=== PATIENT | female | born 1940 | race African-American/Black ===

== ENCOUNTER 2018-04-17 00:04 | Inpatient (IN) | payer OTHER ==
[~2018-04-17] VITALS: Ht 160 cm; Wt 79.8 kg
[2018-04-17 00:59] LABS: BASOPHILS % 0.7 % (0.0-2.0); EOSINOPHILS % 2.3 % (0.0-5.0); LYMPHOCYTES % 11.7 % (20.0-50.0); MEAN CORPUSCULAR HEMOGLOBIN 31.5 pg (28.0-32.0); MEAN CORPUSCULAR VOLUME 94.2 fL (81.0-99.0); MEAN PLATELET VOLUME 7.7 fl (7.4-10.4); MONOCYTES % 5.9 % (2.0-8.0); NEUTROPHILS % 79.4 % (40.0-76.0); PLATELET 199 x1000/uL (130-400); RED BLOOD CELL COUNT 1.31 mill/uL (4.2-5.4)
[2018-04-17 01:02] LABS: CHLORIDE 103 mEq/L (98-107)
[2018-04-17 01:10] LABS: INR 1.1; PROTHROMBIN TIME 11.4 sec (9.4-11.6)
[2018-04-17 01:11] LABS: HEMATOCRIT. 12.3 % (36.0-48.0); HEMOGLOBIN. 4.1 g/dL (12.0-16.0)
[2018-04-17 06:06] VITALS: BP 160/69
[2018-04-17] MEDS ORDERED: ATEN50TA PO (06:41)
[2018-04-17] MEDS ORDERED: TIOT18CA3 INH (06:44)
[2018-04-17] MEDS ORDERED: MOME13HF2 INH (06:44)
[2018-04-17] MEDS ORDERED: ALBU2.5V13 IH (06:44)
[2018-04-17] MEDS ORDERED: FURO-152 PO (06:44)
[2018-04-17] MEDS ORDERED: AMLO10TA80 PO (06:44)
[2018-04-17] MEDS ORDERED: DEXT 5%/0.45% NACL 1000ML 1,000 ML IV SCH (07:30)
[2018-04-17] MEDS ORDERED: CLONIDINE 0.1MG TABLET PO PRN (07:30)
[2018-04-17 08:00] VITALS: BP 142/76
[2018-04-17] MEDS ORDERED: ATENOLOL 50 MG TABLET PO SCH (08:10)
[2018-04-17] MEDS: IPRATROPIUM/ALBUTEROL 0.5-3(2.5)MG/3ML NEB HHN PRN (08:51)
[2018-04-17] MEDS: BUDESONIDE 0.5MG/2ML NEB HHN SCH ×2 (08:51→21:10)
[2018-04-17 12:00] VITALS: BP 138/82
[2018-04-17] MEDS: PANTOPRAZOLE SODIUM 40 MG/VIAL IV SCH ×2 (12:54→21:33)
[2018-04-17 13:15] LABS: HEMOGLOBIN 5.5 g/dL (12.0-16.0)
[2018-04-17 13:16] LABS: HEMATOCRIT 16.5 % (36.0-48.0)
[2018-04-17 16:00] VITALS: BP 139/70
[2018-04-17 20:42] LABS: HEMATOCRIT 18.1 % (36.0-48.0); HEMOGLOBIN 6.3 g/dL (12.0-16.0)
[2018-04-18] VITALS (7 sets, daily range): BP systolic 151–168; BP diastolic 61–78
[2018-04-18] MEDS: IPRATROPIUM/ALBUTEROL 0.5-3(2.5)MG/3ML NEB HHN PRN ×2 (08:24→21:17)
[2018-04-18] MEDS: BUDESONIDE 0.5MG/2ML NEB HHN SCH ×2 (08:25→21:16)
[2018-04-18] MEDS: AMLODIPINE 10MG TABLET PO SCH ×2 (09:33→21:56)
[2018-04-18] MEDS: PANTOPRAZOLE SODIUM 40 MG/VIAL IV SCH (09:44)
[2018-04-18 10:53] LABS: BASOPHILS % 0.6 % (0.0-2.0); EOSINOPHILS % 3.8 % (0.0-5.0); HEMATOCRIT. 22.9 % (36.0-48.0); HEMOGLOBIN. 7.8 g/dL (12.0-16.0); LYMPHOCYTES % 11.6 % (20.0-50.0); MEAN CORPUSCULAR HEMOGLOBIN 30.8 pg (28.0-32.0); MEAN CORPUSCULAR VOLUME 90.1 fL (81.0-99.0); MEAN PLATELET VOLUME 6.9 fl (7.4-10.4); MONOCYTES % 7.4 % (2.0-8.0); NEUTROPHILS % 76.6 % (40.0-76.0); PLATELET 195 x1000/uL (130-400); RED BLOOD CELL COUNT 2.54 mill/uL (4.2-5.4); RED CELL DISTRIBUTION WIDTH 17.3 % (11.6-14.6)
[2018-04-18 16:32] LABS: HEMATOCRIT 22.9 % (36.0-48.0); HEMOGLOBIN 7.9 g/dL (12.0-16.0)
== END 2018-04-18 22:20 | disposition short-term general hospital (02) | DRG 377 ==
LOC: ER 00:04 → 6WST 01:32 → EDBEDREQ 01:36 → EDBEDREQTM 01:36 → ENRESERV 03:39
PROVIDERS: ADMIT Internal Medicine; ATTEND Internal Medicine
PROC: 30233N1 Transfusion of Nonautologous Red Blood Cells into Peripheral Vein, Percutaneous Approach (ICD-10-PCS; principal; 2018-04-17)
PROC: 5A1D70Z Performance of Urinary Filtration, Intermittent, Less than 6 Hours Per Day (ICD-10-PCS; 2018-04-17)
DX: K92.1 Melena (principal); N18.6 End stage renal disease; E43 Unspecified severe protein-calorie malnutrition; D64.9 Anemia, unspecified; I13.11 Hypertensive heart and chronic kidney disease without heart failure, with stage 5 chronic kidney disease, or end stage renal disease; J44.9 Chronic obstructive pulmonary disease, unspecified; F10.20 Alcohol dependence, uncomplicated; E66.9 Obesity, unspecified; Z90.49 Acquired absence of other specified parts of digestive tract; Z90.710 Acquired absence of both cervix and uterus; Z99.2 Dependence on renal dialysis; Z88.6 Allergy status to analgesic agent; Z79.899 Other long term (current) drug therapy; Z71.3 Dietary counseling and surveillance; Z68.31 Body mass index [BMI] 31.0-31.9, adult
CPT/HCPCS: 36415; 36430; 71045; 80048; 80053; 83880; 84484; 85014; 85018; 85025; 85610; 86850; 86900; 86920; 93005; 94002; 94640; 99285; C9113; J3490; J7040; J7050; J7620; J7626; P9016

== ENCOUNTER 2018-10-14 09:28 | Inpatient (IN) | payer OTHER ==
[~2018-10-14] VITALS: Ht 160 cm; Wt 76.2 kg
[2018-10-14] VITALS (46 sets, daily range): BP systolic 51–183; BP diastolic 29–115
[~2018-10-14 09:28] MED LIST: ALBU2.5V13 IH; AMLO10TA80 PO; ATEN50TA PO; FURO-152 PO; MOME13HF2 INH; TIOT18CA3 INH
[2018-10-14] MEDS ORDERED: SODIUM CHLORIDE 0.9% 1,000 ML IV ONE (09:37)
[2018-10-14] MEDS ORDERED: SODIUM BICARBONATE 8.4% 1 MEQ/ML 50ML SYR IV ONE (09:45)
[2018-10-14] MEDS ORDERED: CALCIUM CHLORIDE 1GM/10ML SYR IV ONE ×3 (09:45→11:30)
[2018-10-14] MEDS ORDERED: CALCIUM CHLORIDE 1,000 MG in DEXT 5% WATER 100 ML IV ONE (09:45)
[2018-10-14] MEDS ORDERED: DEXTROSE 50% WATER 50ML SYRINGE IV ONE (09:45)
[2018-10-14] MEDS ORDERED: ALBUTEROL (0.083%) 2.5MG/3ML NEB HHN ONE (09:45)
[2018-10-14] MEDS ORDERED: INSULIN REGULAR (HUMULIN R) 300UNITS/3ML IV ONE (09:45)
[2018-10-14] MEDS ORDERED: ONDANSETRON HCL 4MG/2ML INJ IV ONE (10:00)
[2018-10-14] MEDS ORDERED: CALCIUM CHLORIDE 1,000 MG in DEXT 5% WATER 90 ML IV ONE ×2 (10:00→10:30)
[2018-10-14 10:31] LABS: BASOPHILS % 0.7 % (0.0-2.0); EOSINOPHILS % 0.5 % (0.0-5.0); HEMATOCRIT. 36.1 % (36.0-48.0); HEMOGLOBIN. 11.6 g/dL (12.0-16.0); LYMPHOCYTES % 11.2 % (20.0-50.0); MEAN CORPUSCULAR HEMOGLOBIN 31.2 pg (28.0-32.0); MEAN CORPUSCULAR VOLUME 97.1 fL (81.0-99.0); MEAN PLATELET VOLUME 7.5 fl (7.4-10.4); MONOCYTES % 1.8 % (2.0-8.0); NEUTROPHILS % 85.8 % (40.0-76.0); PLATELET 216 x1000/uL (130-400); RED BLOOD CELL COUNT 3.72 mill/uL (4.2-5.4); RED CELL DISTRIBUTION WIDTH 17.8 % (11.6-14.6)
[2018-10-14 10:38] LABS: CHLORIDE 105 mEq/L (98-107)
[2018-10-14 10:41] LABS: INR 1.1; PROTHROMBIN TIME 10.7 sec (9.1-11.1)
[2018-10-14] MEDS ORDERED: DEXTROSE 50% WATER 50ML SYRINGE IV PRN (11:15)
[2018-10-14] MEDS ORDERED: ONDANSETRON HCL 4MG/2ML INJ IV PRN (11:15)
[2018-10-14 12:29] LABS: HEPATITIS B SURFACE ANTIGEN NEGATIVE
[2018-10-14] MEDS: BLOOD SUGAR DIAGNOSTIC STRIP TEST SCH ×3 (12:51→21:47)
[2018-10-14 12:59] LABS: HEPATITIS A AB IGM NEGATIVE (NEGATIVE)
[2018-10-14] MEDS: INSULIN LISPRO 100 UNITS/ML SUBCUT SCH ×3 (13:20→21:00)
[2018-10-14] MEDS: AMLODIPINE 5MG TABLET PO SCH (21:48)
[2018-10-15] VITALS (91 sets, daily range): BP systolic 89–140; BP diastolic 31–100
[2018-10-15 05:48] LABS: BASOPHILS % 0.7 % (0.0-2.0); EOSINOPHILS % 0.5 % (0.0-5.0); HEMOGLOBIN. 10.3 g/dL (12.0-16.0); LYMPHOCYTES % 11.1 % (20.0-50.0); MEAN CORPUSCULAR HEMOGLOBIN 31.8 pg (28.0-32.0); MEAN CORPUSCULAR VOLUME 95.7 fL (81.0-99.0); MEAN PLATELET VOLUME 7.8 fl (7.4-10.4); MONOCYTES % 8.2 % (2.0-8.0); NEUTROPHILS % 79.5 % (40.0-76.0); PLATELET 167 x1000/uL (130-400); RED BLOOD CELL COUNT 3.24 mill/uL (4.2-5.4); RED CELL DISTRIBUTION WIDTH 17.3 % (11.6-14.6)
[2018-10-15] MEDS: INSULIN LISPRO 100 UNITS/ML SUBCUT SCH ×4 (08:20→20:34)
[2018-10-15] MEDS: BLOOD SUGAR DIAGNOSTIC STRIP TEST SCH ×4 (08:28→21:00)
[2018-10-15] MEDS: AMLODIPINE 5MG TABLET PO SCH ×2 (09:00→20:32)
[2018-10-15] MEDS: DOCUSATE SODIUM 100MG CAPSULE PO SCH ×2 (11:56→17:00)
[2018-10-15] MEDS ORDERED: HYDROCODONE/ACETAMINOPHEN 5/325MG TABLET PO PRN (22:45)
[2018-10-15] MEDS: ACETAMINOPHEN 325MG TABLET PO PRN (23:00)
[2018-10-16] VITALS (59 sets, daily range): BP systolic 103–182; BP diastolic 30–95
[2018-10-16] MEDS: INSULIN LISPRO 100 UNITS/ML SUBCUT SCH ×2 (05:27→12:25)
[2018-10-16 06:14] LABS: BASOPHILS % 0.8 % (0.0-2.0); EOSINOPHILS % 2.8 % (0.0-5.0); HEMATOCRIT. 30.9 % (36.0-48.0); HEMOGLOBIN. 10.2 g/dL (12.0-16.0); MEAN CORPUSCULAR HEMOGLOBIN 31.5 pg (28.0-32.0); MEAN CORPUSCULAR VOLUME 95.4 fL (81.0-99.0); MEAN PLATELET VOLUME 7.3 fl (7.4-10.4); MONOCYTES % 9.7 % (2.0-8.0); NEUTROPHILS % 66.7 % (40.0-76.0); PLATELET 167 x1000/uL (130-400); RED BLOOD CELL COUNT 3.24 mill/uL (4.2-5.4); RED CELL DISTRIBUTION WIDTH 17.4 % (11.6-14.6)
[2018-10-16] MEDS: BLOOD SUGAR DIAGNOSTIC STRIP TEST SCH ×2 (06:51→12:25)
[2018-10-16] MEDS: ACETAMINOPHEN 325MG TABLET PO PRN (08:02)
[2018-10-16] MEDS: AMLODIPINE 5MG TABLET PO SCH (08:37)
[2018-10-16] MEDS: DOCUSATE SODIUM 100MG CAPSULE PO SCH (08:37)
== END 2018-10-16 16:50 | disposition home or self-care (01) | DRG 640 ==
LOC: ER 10:17 → EDBEDREQ 10:52 → EDBEDREQSVC 10:52 → EDBEDREQ 10:58 → EDBEDREQTM 10:58 → ENRESERV 11:10 → CANRESERV 11:10 → CVICU 11:39 → ENRESERV 11:42
PROVIDERS: ADMIT Internal Medicine; ATTEND Internal Medicine
PROC: 5A1D70Z Performance of Urinary Filtration, Intermittent, Less than 6 Hours Per Day (ICD-10-PCS; principal; 2018-10-14)
PROC: 5A1D70Z Performance of Urinary Filtration, Intermittent, Less than 6 Hours Per Day (ICD-10-PCS; 2018-10-15)
DX: E87.5 Hyperkalemia (principal); N18.6 End stage renal disease; I13.11 Hypertensive heart and chronic kidney disease without heart failure, with stage 5 chronic kidney disease, or end stage renal disease; E44.0 Moderate protein-calorie malnutrition; J98.11 Atelectasis; E87.1 Hypo-osmolality and hyponatremia; D63.1 Anemia in chronic kidney disease; E11.22 Type 2 diabetes mellitus with diabetic chronic kidney disease; R74.0 Nonspecific elevation of levels of transaminase and lactic acid dehydrogenase [LDH]; E66.9 Obesity, unspecified; E87.70 Fluid overload, unspecified; F10.10 Alcohol abuse, uncomplicated; J44.9 Chronic obstructive pulmonary disease, unspecified; Z90.710 Acquired absence of both cervix and uterus; Z90.89 Acquired absence of other organs; Z99.2 Dependence on renal dialysis; Z88.8 Allergy status to other drugs, medicaments and biological substances; Z68.29 Body mass index [BMI] 29.0-29.9, adult; Z79.899 Other long term (current) drug therapy
CPT/HCPCS: 36415; 71045; 80048; 80061; 82962; 83036; 84132; 84439; 84443; 84484; 86705; 86709; 86803; 87340; 93005; 94640; 96365; 99291; J1815; J2405; J3490; J7030; J7060; J7611

== ENCOUNTER 2019-12-12 13:32 | Emergency (ER) | payer OTHER ==
[~2019-12-12] VITALS: Ht 165.1 cm; Wt 91.0 kg
[2019-12-12] MEDS ORDERED: ERYTHROMYCIN BASE 0.5% OPHTH OINT 3.5GM LEFTEYE ONE (14:15)
[2019-12-12 14:33] LABS: HEMATOCRIT. 27.6 % (36.0-48.0); MEAN CORPUSCULAR HEMOGLOBIN 32.9 pg (28.0-32.0); MEAN CORPUSCULAR VOLUME 100.6 fL (81.0-99.0); MEAN PLATELET VOLUME 6.6 fl (7.4-10.4); PLATELET 177 x1000/uL (130-400); RED BLOOD CELL COUNT 2.74 mill/uL (4.2-5.4); RED CELL DISTRIBUTION WIDTH 16.7 % (11.6-14.6)
[2019-12-12 14:40] LABS: CHLORIDE 105 mEq/L (98-107)
[2019-12-12 15:24] LABS: PLATELET ESTIMATE NORMAL
[2019-12-12] MEDS ORDERED: ONDANSETRON HCL 4MG/2ML INJ IV ONE (16:30)
[2019-12-12 19:03] VITALS: BP 101/33
== END 2019-12-12 19:20 | disposition short-term general hospital (02) ==
LOC: ER 13:41
DX: E87.70 Fluid overload, unspecified (principal); H10.022 Other mucopurulent conjunctivitis, left eye; I12.0 Hypertensive chronic kidney disease with stage 5 chronic kidney disease or end stage renal disease; N18.6 End stage renal disease; Z99.2 Dependence on renal dialysis; Z88.5 Allergy status to narcotic agent
CPT/HCPCS: 36415; 71045; 80053; 83880; 84484; 85025; 93005; 96374; 99285; J2405

== ENCOUNTER 2020-05-12 19:48 | Emergency (ER) | payer OTHER ==
[~2020-05-12] VITALS: Ht 167.6 cm; Wt 86.0 kg
[2020-05-12 20:55] LABS: BASOPHILS % 0.6 % (0.0-2.0); EOSINOPHILS % 1.5 % (0.0-5.0); HEMATOCRIT. 39.1 % (36.0-48.0); HEMOGLOBIN. 12.9 g/dL (12.0-16.0); MEAN CORPUSCULAR HEMOGLOBIN 30.5 pg (28.0-32.0); MEAN CORPUSCULAR VOLUME 92.7 fL (81.0-99.0); MEAN PLATELET VOLUME 8.6 fl (7.4-10.4); MONOCYTES % 10.8 % (2.0-8.0); NEUTROPHILS % 77.1 % (40.0-76.0); PLATELET 106 x1000/uL (130-400); RED BLOOD CELL COUNT 4.22 mill/uL (4.2-5.4); RED CELL DISTRIBUTION WIDTH 16.9 % (11.6-14.6)
[2020-05-12 20:57] LABS: CLARITY URINE TURBID (CLEAR); COLOR URINE YELLOW (YELLOW); KETONES URINE NEGATIVE (NEGATIVE); LEUKOCYTE ESTERASE URINE 3+ (NEGATIVE); NITRITE URINE NEGATIVE (NEGATIVE); OCCULT BLOOD URINE 2+ (NEGATIVE); PROTEIN URINE 3+ (NEGATIVE); SPECIFIC GRAVITY URINE 1.011 (1.005-1.030); UROBILINOGEN URINE 0.2 E.U./dL (0.2-1.0)
[2020-05-12 21:09] LABS: CHLORIDE 105 mEq/L (98-107)
[2020-05-12 21:25] LABS: INR 1.1; PROTHROMBIN TIME 11.3 sec (9.6-11.0)
[2020-05-12] MEDS ORDERED: CEFTRIAXONE 1 G PREMIX 50 ML IV ONE (22:15)
[2020-05-12] MEDS ORDERED: INSULIN REGULAR (HUMULIN R) 300UNITS/3ML IV ONE (22:15)
[2020-05-12] MEDS ORDERED: DEXTROSE 50% WATER 50ML SYRINGE IV ONE (22:15)
[2020-05-12 23:12] VITALS: BP 134/70
== END 2020-05-13 00:19 | disposition short-term general hospital (02) ==
LOC: ER 19:51
DX: G93.40 Encephalopathy, unspecified (principal); N30.00 Acute cystitis without hematuria; E87.5 Hyperkalemia; I12.0 Hypertensive chronic kidney disease with stage 5 chronic kidney disease or end stage renal disease; N18.6 End stage renal disease; Z86.73 Personal history of transient ischemic attack (TIA), and cerebral infarction without residual deficits; Z79.899 Other long term (current) drug therapy; Z88.6 Allergy status to analgesic agent
CPT/HCPCS: 36415; 70450; 71045; 80053; 81003; 82962; 84484; 85025; 85610; 87077; 87086; 87186; 93005; 96365; 96375; 99285; J0696; J1815

== ENCOUNTER 2022-01-22 14:01 | Emergency (ER) | payer OTHER ==
[~2022-01-22] VITALS: Ht 157.5 cm; Wt 55.0 kg
[2022-01-22 14:53] LABS: BASOPHILS % 1.4 % (0.0-2.0); HEMATOCRIT. 34.1 % (36.0-48.0); HEMOGLOBIN. 10.6 g/dL (12.0-16.0); LYMPHOCYTES % 22.8 % (20.0-50.0); MEAN CORPUSCULAR HEMOGLOBIN 26.8 pg (28.0-32.0); MEAN PLATELET VOLUME 7.2 fl (7.4-10.4); MONOCYTES % 7.1 % (2.0-8.0); NEUTROPHILS % 67.7 % (40.0-76.0); PLATELET 119 x1000/uL (130-400); RED BLOOD CELL COUNT 3.97 mill/uL (4.2-5.4)
[2022-01-22 15:03] LABS: INR 1.3; PROTHROMBIN TIME 13.5 sec (9.6-11.0)
[2022-01-22 15:07] LABS: CHLORIDE 110 mEq/L (98-107)
[2022-01-22] MEDS ORDERED: DEXTROSE 50% WATER 50ML SYRINGE IV ONE (16:45)
[2022-01-22] MEDS ORDERED: ACETAMINOPHEN 325MG TABLET PO ONE (17:45)
[2022-01-22 18:54] VITALS: BP 140/62
== END 2022-01-22 19:34 | disposition short-term general hospital (02) ==
LOC: ER 14:01 → CANBEDREQ 22:41
DX: E16.2 Hypoglycemia, unspecified (principal); R53.1 Weakness; I12.0 Hypertensive chronic kidney disease with stage 5 chronic kidney disease or end stage renal disease; N18.6 End stage renal disease; Z20.822 Contact with and (suspected) exposure to COVID-19; D61.818 Other pancytopenia; I45.10 Unspecified right bundle-branch block; Z86.73 Personal history of transient ischemic attack (TIA), and cerebral infarction without residual deficits; Z99.2 Dependence on renal dialysis
CPT/HCPCS: 36415; 71045; 80053; 82962; 84484; 85025; 87426; 93005; 96374; 99291

== ENCOUNTER 2022-01-23 05:55 | Emergency (ER) | payer OTHER ==
[~2022-01-23] VITALS: Ht 162.6 cm; Wt 66.0 kg
[2022-01-23] MEDS ORDERED: PANTOPRAZOLE SODIUM 40 MG/VIAL IV STA (06:15)
[2022-01-23 07:03] LABS: EOSINOPHILS % 0.1 % (0.0-5.0); HEMATOCRIT. 35.3 % (36.0-48.0); HEMOGLOBIN. 10.6 g/dL (12.0-16.0); LYMPHOCYTES % 9.9 % (20.0-50.0); MEAN CORPUSCULAR HEMOGLOBIN 26.2 pg (28.0-32.0); MONOCYTES % 5.4 % (2.0-8.0); NEUTROPHILS % 83.6 % (40.0-76.0); PLATELET 118 x1000/uL (130-400); RED BLOOD CELL COUNT 4.06 mill/uL (4.2-5.4); RED CELL DISTRIBUTION WIDTH 21.4 % (11.6-14.6)
[2022-01-23 07:08] LABS: CHLORIDE 111 mEq/L (98-107); INR 1.2; PARTIAL THROMBOPLASTIN TIME 40.5 sec (23.4-31.0); PROTHROMBIN TIME 12.6 sec (9.6-11.0)
[2022-01-23 09:45] VITALS: BP 137/55
== END 2022-01-23 10:16 | disposition short-term general hospital (02) ==
LOC: ER 05:55 → CANBEDREQ 10:16 → ER 10:16
DX: K92.2 Gastrointestinal hemorrhage, unspecified (principal); N18.6 End stage renal disease; Z20.822 Contact with and (suspected) exposure to COVID-19; Z88.5 Allergy status to narcotic agent; Z88.8 Allergy status to other drugs, medicaments and biological substances; Z88.6 Allergy status to analgesic agent
CPT/HCPCS: 36415; 71045; 80053; 82962; 83690; 85025; 85610; 85730; 86850; 86900; 86901; 87426; 96374; 99285; C9113